=== PATIENT | male | born 1955 | race Caucasian/White ===

== ENCOUNTER 2021-07-26 11:31 | Observation (INO) ==
[2021-07-26 12:06] LABS: Basophils % 0.6 % (0.0-0.8); Eosinophils # 0.3 10*3/uL (0.0-0.87); Eosinophils % 5.3 % (0.00-10.9); Hematocrit 48.6 VOL% (42.0-52.0); Immature Granulocytes % 0.2 %; Immature Granulocytes Absolute 0.01 #; Lymphocytes # 1.9 10*3/uL (1.4-4.0); Mean Corpuscular HGB Conc 32.9 GM/DL (32-36); Mean Corpuscular Volume 90.3 FL (87-102); Monocytes % 9.7 % (1.7-12.7); Neutrophils % 54.2 % (38.7-73.9); Platelet Count 229 T/CUMM (130-400); Red Blood Count 5.38 MC/CUMM (3.8-5.5); Red Cell Distribution Width 13.1 % (9.3-17.3); White Blood Count 6.2 T/CUMM (4-12)
[2021-07-26 12:31] LABS: Albumin 3.8 G/DL (3.4-5.0); Bilirubin,Total 0.5 MG/DL (0.20-1.00); Calcium 9.6 MG/DL (8.5-10.1); Osmolality,Calculated 273.8 MOS/KG (273-304); Potassium 4.3 MMOL/L (3.5-5.1); Total Protein 7.3 G/DL (6.4-8.2)
[2021-07-26] MEDS ORDERED: ASPIRIN 325 MG TABLET PO STA (12:48)
[2021-07-26] MEDS ORDERED: NITROGLYCERIN SL 0.4 MG TABLET SL PRN (12:48)
[2021-07-26] MEDS ORDERED: DEXTROSE 50% 25 GM/50 ML VIAL IV PRN (14:58)
[2021-07-26] MEDS ORDERED: hydrALAZINE 20 MG/1 ML VIAL IV PRN (14:58)
[2021-07-26] MEDS ORDERED: ALBUTEROL 2.5 MG/3 ML NEB RESP TX PRN (14:58)
[2021-07-26] MEDS ORDERED: ONDANSETRON 4 MG/2 ML VIAL IV PRN (14:58)
[2021-07-26] MEDS ORDERED: ACETAMINOPHEN 325 MG TABLET PO PRN (14:58)
[2021-07-26] MEDS ORDERED: GLUCAGON 1 MG VIAL IM PRN (14:58)
[2021-07-26] MEDS: CIPROFLOXACIN 250 MG TABLET PO SCH ×2 (17:12→21:08)
[2021-07-26 18:07] LABS: Risk Ratio 3.9; Thyroid Stimulating Hormone 1.46 uIU/ml (0.358-3.74); VLDL Cholesterol 17.6 MG/DL
[2021-07-26] MEDS ORDERED: LATANOPROST 0.005% OPH SOLN 2.5 ML BOTTLE BOTH EYES SCH (21:00)
[2021-07-26] MEDS ORDERED: TAMSULOSIN 0.4 MG CAPSULE PO SCH (21:00)
[2021-07-26] MEDS ORDERED: ENOXAPARIN 40 MG/0.4 ML SYRINGE SUBCUT SCH (21:00)
[2021-07-26] MEDS ORDERED: FLUTICASONE 50 MCG NASAL SPRAY 16 GM BOTTLE BOTH NARES SCH (21:00)
[2021-07-26] MEDS: PHENAZOPYRIDINE 95 MG TABLET PO SCH (21:09)
[2021-07-27 05:15] LABS: Basophils % 0.4 % (0.0-0.8); Eosinophils # 0.4 10*3/uL (0.0-0.87); Eosinophils % 5.5 % (0.00-10.9); Hemoglobin 14.6 GM/DL (14.0-18.0); Immature Granulocytes % 0.3 %; Immature Granulocytes Absolute 0.02 #; Lymphocytes # 3.1 10*3/uL (1.4-4.0); Lymphocytes % 43.1 % (21.2-54.2); Mean Corpuscular HGB Conc 31.7 GM/DL (32-36); Mean Corpuscular Volume 92.4 FL (87-102); Mean Platelet Volume 10.8 FL (9.6-12.0); Monocytes % 11.1 % (1.7-12.7); Neutrophils % 39.6 % (38.7-73.9); Platelet Count 194 T/CUMM (130-400); Red Blood Count 4.98 MC/CUMM (3.8-5.5); White Blood Count 7.1 T/CUMM (4-12)
[2021-07-27 05:47] LABS: Albumin 3.3 G/DL (3.4-5.0); Bilirubin,Total 0.8 MG/DL (0.20-1.00); Calcium 8.8 MG/DL (8.5-10.1); Total Protein 6.3 G/DL (6.4-8.2)
[2021-07-27 05:48] LABS: Osmolality,Calculated 279.4 MOS/KG (273-304); Potassium 4.2 MMOL/L (3.5-5.1)
[2021-07-27] MEDS ORDERED: MULTIVITAMIN (CENTRUM) TABLET PO SCH (08:00)
[2021-07-27] MEDS: CIPROFLOXACIN 250 MG TABLET PO SCH (08:36)
[2021-07-27] MEDS: PHENAZOPYRIDINE 95 MG TABLET PO SCH (08:37)
[2021-07-27] MEDS ORDERED: TIMOLOL 0.5% OPH SOLN 5 ML BOTTLE LEFT EYE SCH (09:00)
[2021-07-27] MEDS ORDERED: PANTOPRAZOLE 40 MG TABLET PO SCH (09:00)
[2021-07-27] MEDS ORDERED: ASPIRIN EC 81 MG TABLET PO SCH (10:00)
[2021-07-27 11:48] VITALS: BP 124/79
== END 2021-07-27 14:09 | disposition home or self-care (01) ==
LOC: N.ED 11:31 → N.EDINP 11:31 → SUATTDRO 14:58 → N.TELES 16:50
PROVIDERS: ADMIT Internal Medicine Geriatric Medicine; ATTEND Internal Medicine